=== PATIENT | female | born 2000 | race Caucasian/White ===

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

== ENCOUNTER → 2020-06-08 | Outpatient (CLI) | payer OTHER, MEDICAID, SELFPAY | END | disposition home or self-care (01) | PROVIDERS: Visit Provider Family Medicine | DX: R39.15 Urgency of urination (principal) | CPT/HCPCS: 87086; 87088 ==

== ENCOUNTER → 2020-06-14 16:25 | Outpatient (CLI) | payer OTHER, MEDICAID, SELFPAY | PROVIDERS: PCP Family Medicine; Referring Provider Family Medicine; Visit Provider Family Medicine | DX: R39.15 Urgency of urination (principal) | CPT/HCPCS: 87086; 87088 ==

== ENCOUNTER → 2020-10-18 15:21 | Outpatient (CLI) | payer BC, OTHER, MEDICAID, SELFPAY ==
--- NOTE | 2020-10-18 15:26 | MRI_ITS ---
STUDY: MRI BRAIN WITHOUT CONTRAST REASON FOR EXAM: Female, 20 years old. chronic headache -- migraines x 5 years TECHNIQUE: Standardized multiplanar fat and water weighted pulse sequences were obtained. COMPARISON: CT of the brain 04/18/2018. FINDINGS: Normal size of the ventricles and extra-axial spaces for the patient''s age. Normal white matter tracts of the supratentorial brain. Normal bilateral basal ganglia. Normal thalami. There is no extra-axial fluid accumulation. Normal flow voids within the major intracranial circulation suggesting patency by spin echo criteria. Normal sella turcica, pituitary gland, infundibular stalk, optic chiasm and hypothalamus. Normal tectal plate and pineal gland. Normal midbrain, ryan and medulla. Normal cerebellum. Normal basal cisterns. Normal bilateral temporal bones. Normal bilateral internal auditory canals. No demonstrated orbital abnormality, within the constraints of a routine brain study. Normal visualized paranasal sinuses. Normal calvarium and skull base. Normal visualized soft tissue structures. Normal visualized upper cervical spine. MRI/Brain without Contrast IMPRESSION: Normal unenhanced MRI of the brain. Electronically Signed: Lenin Walls MD at 16:12 EST , Service support ,
== END ==
PROVIDERS: PCP Family Medicine; Referring Provider Psychiatry & Neurology Sleep Medicine; Visit Provider Psychiatry & Neurology Sleep Medicine
DX: G44.89 Other headache syndrome (principal); R20.2 Paresthesia of skin
CPT/HCPCS: 70551

== ENCOUNTER → 2020-12-13 06:03 | Outpatient (CLI) | payer BC, MEDICAID, SELFPAY ==
--- NOTE | 2020-12-13 07:53 | TELEMED_ITS ---
[facility] Tele[facility] has confirmed receipt of a request for visit. This document confirms receipt of the order initiating the consult. To find the results of the consultation, please view the patient's reports for the scanned Telemed Consult.
== END ==
PROVIDERS: PCP Family Medicine; Referring Provider Psychiatry & Neurology Sleep Medicine; Visit Provider Psychiatry & Neurology Sleep Medicine
DX: G44.89 Other headache syndrome (principal); R20.2 Paresthesia of skin
CPT/HCPCS: 95819

== ENCOUNTER → 2021-02-03 09:53 | Outpatient (CLI) | payer BC, MEDICAID, SELFPAY ==
[2021-02-03 12:00] LABS: Hematocrit 43.5 % (37-47); Hemoglobin 14.6 g/dL (12.0-15.0); Mean Corp Hgb Conc 33.6 g/dL (32-36); Mean Corpuscular Hgb 29.7 pg (27.0-32.0); Mean Corpuscular Volume 88.6 fL (81-99); Mean Platelet Vol. 10.5 fl (6.2-12.0); Platelet Count 346 K/mm3 (150-450); RBC Distribution Width CV 11.6 % (11.6-14.6); RBC Distribution Width SD 37.1 fl (35.1-43.9); Red Blood Count 4.91 M/mm3 (4.2-5.4); White Blood Count 7.4 K/mm3 (4.4-11.0)
[2021-02-03 12:32] LABS: Anion Gap 6 (5-15); BUN 8 mg/dL (7-18); BUN/Creat Ratio 10.1 RATIO (10-20); Calcium,Total 9.3 mg/dL (8.5-10.1); Chloride 107 mmol/L (98-107); Cholesterol 195 mg/dL (200); Creatinine, Serum 0.79 mg/dL (0.55-1.02); EST Glomerular Filtration Rate 98 mL/min (>60); Est Glom Filt Rate - Afr Amer 118 mL/min (>60); Estradiol 75.2 pg/mL; Follicle Stimulating Hormone 5.8 mIU/mL; Glucose 81 mg/dL (74-106); High Density Lipoprotein 53 mg/dL; Luteinizing Hormone 13.2 mIU/mL; Potassium 3.5 mmol/L (3.5-5.1); Sodium Level 139 mmol/L (136-145); Triglycerides 86 mg/dL; Very Low Density Lipoprotein 17 mg/dL (5-40)
[2021-02-07 11:04] LABS: Prolactin 12.5 ng/mL
== END ==
PROVIDERS: PCP Family Medicine; Referring Provider Family Medicine; Visit Provider Family Medicine
DX: N92.6 Irregular menstruation, unspecified (principal); Z13.220 Encounter for screening for lipoid disorders
CPT/HCPCS: 36415; 80048; 80061; 82627; 82670; 83001; 83002; 84146; 84403; 84443; 85027; 82626

== ENCOUNTER → 2023-08-02 | Outpatient (CLI) | payer BC, SELFPAY ==
[2023-08-02 15:32] LABS: Vitamin D,25 Hydroxy 117.9 ng/mL
[2023-08-02 15:44] LABS: Thyroid Stim Hormone (TSH) 1.38 uIU/mL (0.358-3.74)
== END | disposition home or self-care (01) ==
LOC: MFPLAB 14:09
PROVIDERS: PCP Family Medicine; Visit Provider Family Medicine
DX: F41.9 Anxiety disorder, unspecified (principal)
CPT/HCPCS: 36415; 82306; 84443

== ENCOUNTER 2023-12-17 02:37 | Emergency (ER) | payer BC, SELFPAY ==
[2023-12-17 02:42] VITALS: BP 103/86; PULSE 104; RESP 16; TEMP 36.1; O2SAT 100; BMI 24.4
--- NOTE | 2023-12-17 03:05 | ED.VIS.GI ---
HPI HPI - GI History of Present Illness Chief Complaint: Nausea/Vomiting/Diarrhea Informant: patient Abdominal Pain/Flank Pain Onset: Today and Hours (3) Context: Sudden Onset Timing: Continuous Quality: Dull Location: Diffuse Worsened by: Nothing Relieved by: Nothing Nausea/Vomiting/Emesis GI Symptom: Positive for Nausea and Vomiting Quality: Positive for Nonbilious; Negative for Blood streaks, Coffee ground or Hematemesis Diarrhea/Melena/Hematochezia GI Symptom: Positive for Diarrhea; Negative for Melena or Hematochezia Associated Symptoms Associated Symptoms: Negative for Dysuria, Frequency or Hematuria Narrative Narrative: Patient presents with nausea, vomiting, and diarrhea that began approximately 3 hours prior to arrival. Patient states it began rather suddenly. Patient also admits to some diffuse abdominal pain. Patient describes it as dull. Patient states nothing makes her symptoms any better and nothing makes them any worse. Patient states her diarrhea is watery. Patient denies any melena or hematochezia. Patient states that she is just vomiting stomach contents. Patient denies any hematemesis or coffee-ground emesis. Patient denies any bilious vomiting. Patient admits to some subjective fevers where she has a warm sensation just prior to vomiting. Patient also breaks out into a sweat when she vomits. [facility] Medical History MIA (generalized anxiety disorder) Home Medications rizatriptan 10 mg tablet 10 mg PO PRN PRN Migraine Symptoms 04/18/18 [History Last Taken Unknown] cholecalciferol (vitamin D3) 125 mcg (5,000 unit) tablet (Vitamin D3) 125 mcg PO DAILY 07/31/22 [History Last Taken Unknown] doxepin 10 mg capsule 10 mg PO DAILY 07/31/22 [History Last Taken Unknown] duloxetine 60 mg capsule,delayed release 60 mg PO DAILY #90 caps 10/29/23 [Rx Last Taken Unknown] hydroxyzine HCl 25 mg tablet 25 mg PO TID PRN anxiety #90 tabs 10/29/23 [Rx Last Taken Unknown] topiramate 25 mg tablet mg PO 10/29/23 [History Last Taken Unknown] ondansetron 4 mg disintegrating tablet 4 mg PO Q8H PRN PRN Nausea #10 tabs 12/17/23 [Rx Last Taken Unknown] Allergy/AdvReac Type Severity Reaction Status Date / Time amoxicillin Allergy Intermediate Nausea Verified 10/29/23 15:38 Family History Other Anemia Thyroid disorder Surgical History History of hernia repair [place] teeth extracted Social History Smoking Status: Never smoker alcohol intake: never substance use type: does not use ROS ROS ED Constitutional Constitutional ED: Reports fever(s), subjective and sweats; Denies chills Eyes Eyes: Denies blurry vision or change in vision ENT ENT ED: Denies rhinorrhea or sore throat Cardiovascular Cardiovascular: Denies chest pain or palpitations Respiratory/Chest Respiratory/Chest: Denies cough or dyspnea Gastrointestinal Gastrointestinal: Reports diarrhea, nausea and vomiting Genitourinary Genitourinary ED: Denies dysuria or hematuria Musculoskeletal Musculoskeletal: Reports neck pain; Denies back pain Integumentary Denies abscess or rash Neurologic Neurologic: Denies headache(s) or weakness Psychiatric Psychiatric: Reports anxiety Allergic/Immunologic Allergic/Immunologic ED: Denies mouth swelling or urticaria EXAM Physical Exam Const Vital Signs: 12/17/23 02:42 Temperature 96.9 F L Temperature Source Temporal Pulse Rate 104 H Respiratory Rate 16 Blood Pressure 103/86 H Blood Pressure Mean 91 Pulse Ox 100 Oxygen Delivery Method Room Air Positive well nourished and well developed General Appearance ED: well developed and NAD HEENT Reports moist mucous membranes Neck supple and no JVD Resp normal respiratory effort and clear to auscultation bilaterally Cardio regular rate and regular rhythm GI non-tender and non-distended Palpation: soft Neuro CN's II-XII intact bilaterally, moves all extremities and no sensory deficits noted Sensorium / Orientation: alert Motor Exam: strength 5/5 throughout Psych mental status grossly normal MDM MDM MDM Narrative Medical decision making narrative: Differential diagnosis includes gastroenteritis, viral illness, dehydration, electrolyte abnormality, urinary tract infection, and pancreatitis. CBC will be obtained to assess for leukocytosis and anemia. Comprehensive metabolic profile will be obtained to assess for electrolyte abnormality, renal function, and hepatic function. Lipase will be obtained to assess for pancreatitis. Urinalysis will be obtained to assess for urinary tract infection. Lab Data Attestation: I reviewed the patient's lab results. Lab results narrative: CBC was reviewed. There is a mild leukocytosis of 14.8. Hemoglobin was slightly elevated at 16.6 and hematocrit was 48.7. Platelets were normal. Comprehensive metabolic profile was reviewed. Glucose was elevated at 220. Creatinine was 1.16. Potassium slightly low at 3.3. Anion gap was normal. Lipase was reviewed and was slightly elevated at 107. Urinalysis was reviewed. Leukocyte Estrace was 25. There were 25-50 white blood cells and 4+ bacteria. However there were also noted 50-100 squamous epithelial cells. Labs: Laboratory Results - last 24 hr 12/17/23 12/17/23 03:34 03:42 WBC 14.8 H RBC 5.46 H Hgb 16.6 H Hct 48.7 H MCV 89.2 MCH 30.4 MCHC 34.1 RDW Std Deviation 38.7 RDW Coeff of [place] 12.1 Plt Count 371 MPV 10.6 Immature Gran % (Auto) 0.400 Neut % (Auto) 87.2 H Lymph % (Auto) 3.3 L Castro % (Auto) 8.5 Eos % (Auto) 0.1 Baso % (Auto) 0.5 Absolute Neuts (auto) 12.9 H Absolute Lymphs (auto) 0.49 L Nucleated RBC % 0 Sodium 142 Potassium 3.3 L Chloride 109 H Carbon Dioxide 23.0 Anion Gap 10 BUN 10 Creatinine 1.16 H Estim Creat Clear Calc 62.06 Est GFR (MDRD) Af Amer 74 Est GFR (MDRD) Non-Af 61 BUN/Creatinine Ratio 8.6 L Glucose 220 H Calcium 9.5 Total Bilirubin 1.10 H AST 11 L ALT 17 Alkaline Phosphatase 90 Total Protein 7.7 Albumin 4.5 Globulin 3.2 Albumin/Globulin Ratio 1.4 Lipase 107 H Urine Color Yellow Urine Clarity Clear Urine pH 5.0 Ur Specific Severance 1.030 Urine Protein 30 H Urine Glucose (UA) Normal Urine Ketones 15 H Urine Occult Blood 25 H Urine Nitrite Negative Urine Bilirubin 3 H Urine Urobilinogen 1 H Ur Leukocyte Esterase 25 H Urine RBC 10-25 SEEN Urine WBC 25-50 SEEN Ur Squamous Epith Cells 50-100 SEEN Urine Bacteria 4+ Urine Mucus 0 SEEN Additional Tests and Interventions Additional Tests or Interventions: Urine culture was ordered. Treatment and Re-Evaluation :: Patient was given IV fluids and Zofran. Patient is feeling better on reevaluation. Patient was instructed to start with small amounts of liquids more frequently. Patient was instructed to advance her diet to a bland diet and then to a regular diet if she feels better. Patient was given a prescription for Zofran. Patient was instructed to follow-up with her primary care physician in 5 to 7 days. Patient instructed to continue to monitor her blood sugars. Patient understood and was agreeable with the plan. All questions were answered. Discharge Plan Triage Chief Complaint: Nausea/Vomiting/Diarrhea ED Provider: Abdirizak Sawyer Dx/Rx/DC Orders Clinical Impression: Hyperglycemia, Nausea and vomiting Instructions: ED Vomiting (Adult) Prescriptions: New ondansetron [ondansetron] 4 mg tablet,disintegrating 4 mg PO Q8H PRN PRN (Reason: Nausea) Qty: 10 0RF No Action cholecalciferol (vitamin D3) [Vitamin D3] 125 mcg (5,000 unit) tablet 125 mcg PO DAILY Patient Comments: TAKE 1 TABLET BY MOUTH EVERY DAY doxepin 10 mg capsule 10 mg PO DAILY topiramate 25 mg tablet PO Patient Comments: TAKE 1 TABLET BY MOUTH ONCE DAILY AT BEDTIME. INCREASE TO TWICE DAILY AFTER 1 WEEK duloxetine 60 mg capsule,delayed release(DR/EC) 60 mg PO DAILY Qty: 90 1RF hydroxyzine HCl 25 mg tablet 25 mg PO TID PRN (Reason: anxiety) Qty: 90 2RF rizatriptan 10 MG tablet 10 mg PO PRN PRN (Reason: Migraine Symptoms) Primary Care Provider: Femi Espinal Referrals: Femi Espinal MD [Primary Care Provider] - 3-5 Days Disposition Disposition: Home, Self Care
[2023-12-17] MEDS: Ondansetron 4 MG/2 ML Vial IV (03:41)
[2023-12-17 03:42] LABS: Mucous, Urine 0 SEEN /hpf (<or=2+)
[2023-12-17] MEDS: 0.9% Normal Saline (1000mL) 1,000 ML 1000 ML IV (03:42)
[2023-12-17 03:43] LABS: Color, Urine Yellow (Yellow); Glucose, Dipstick Normal (Normal); Ketone-Dipstick 15 mg/dl (Negative); Leukocyte Esterase-Dipstick 25 /ul (Negative); Nitrite-Dipstick Negative (Negative); Occult Blood-Urine 25 /ul (Negative); Protein-Dipstick 30 mg/dl (Negative); Urine Clarity Clear (Clear); Urine Urobilinogen 1 mg/dl (Normal)
[2023-12-17 03:48] LABS: Urine Bilirubin Dipstick 3 mg/dL (Negative)
[2023-12-17 03:51] LABS: Absolute Lymphocyte Count 0.49 X10^3/uL (0.83-4.51); Absolute Neutrophil Count 12.9 X10^3/uL (2.0-7.7); Basophil# 0.08 X10^3/uL; Basophil% 0.5 % (0-1); Eosinophil# 0.01 X10^3/uL; Eosinophils% 0.1 % (0-5); Hematocrit 48.7 % (37-47); Hemoglobin 16.6 g/dL (12.0-15.0); Lymphocyte # 0.49 X10^3/ul (0.83-4.51); Lymphocyte % 3.3 % (19-41); Mean Corp Hgb Conc 34.1 g/dL (32-36); Mean Corpuscular Hgb 30.4 pg (27.0-32.0); Mean Corpuscular Volume 89.2 fL (81-99); Mean Platelet Vol. 10.6 fl (6.2-12.0); Monocyte# 1.25 X10^3/uL; Monocyte% 8.5 % (0-10); NRBC Flagged by Analyzer 0 % (0-5); Neutrophil # 12.89 X10^3/uL (2.7-7.7); Neutrophil % 87.2 % (47-70); POSITIVE DIFFERENTIAL YES; Platelet Count 371 K/mm3 (150-450); RBC Distribution Width CV 12.1 % (11.6-14.6); RBC Distribution Width SD 38.7 fl (35.1-43.9); Red Blood Count 5.46 M/mm3 (4.2-5.4); White Blood Count 14.8 K/mm3 (4.4-11.0)
[2023-12-17 03:52] LABS: Bacteria 4+ /hpf (None Seen); Red Blood Cells-Urine 10-25 SEEN /hpf (0-5); Squamous Epithelial Cells - UA 50-100 SEEN /hpf (5-10); White Blood Cells 25-50 SEEN /hpf (0-5)
[2023-12-17 04:08] LABS: ALB/GLOB Ratio 1.4 RATIO (0.9-2.4); AST(SGOT) 11 U/L (15-37); Alanine Aminotransfer ALT/SGPT 17 U/L (13-56); Albumin, Serum 4.5 g/dL (3.2-5.0); Alkaline Phosphatase 90 U/L (45-117); Anion Gap 10 (5-15); BUN 10 mg/dL (7-18); BUN/Creat Ratio 8.6 RATIO (10-20); Calcium,Total 9.5 mg/dL (8.5-10.1); Chloride 109 mmol/L (98-107); Creatinine, Serum 1.16 mg/dL (0.55-1.02); EST Glomerular Filtration Rate 61 mL/min (>60); Est Glom Filt Rate - Afr Amer 74 mL/min (>60); Estimated Creatinine Clearance 62.06 ml/min; Globulin 3.2 g/dL (2.2-4.2); Glucose 220 mg/dL (74-106); Lipase 107 U/L (13-75); Potassium 3.3 mmol/L (3.5-5.1); Protein, Total 7.7 g/dL (6.4-8.2); Sodium Level 142 mmol/L (136-145)
[2023-12-17 04:52] VITALS: BP 98/57; PULSE 99; RESP 16; TEMP 36.2; O2SAT 99
== END 2023-12-17 04:52 | disposition home or self-care (01) ==
PROVIDERS: Emergency Provider Emergency Medicine; PCP Family Medicine; Visit Provider Emergency Medicine
DX: R11.2 Nausea with vomiting, unspecified (principal); R73.9 Hyperglycemia, unspecified; F41.1 Generalized anxiety disorder; Z79.899 Other long term (current) drug therapy
CPT/HCPCS: 80053; 81001; 83690; 85025; 87086; 87088; 96361; 96374; 99284; J7030; A4216; J2405

== ENCOUNTER → 2024-01-02 | Outpatient (CLI) | payer BC, SELFPAY ==
--- NOTE | 2024-01-02 07:16 | US_ITS ---
INDICATION: ABDOMINAL PAIN EXAMINATION: Ultrasound US Abdomen Limited (quadrant) TECHNIQUE: Costa scale and color doppler imaging was performed of the right upper quadrant. COMPARISON: FINDINGS: LIVER: There is normal echotexture measuring 11.7 cm. There is a hyperechoic 1.7 x 2.9 x 1.9 cm likely a hemangioma. There is no free fluid. GALLBLADDER AND BILIARY TREE: No shadowing gallstone, pericholecystic fluid or gallbladder wall thickening is demonstrated. There is layering gallbladder sludge. The proximal common bile duct measures 2.8 mm, which is within normal limits for the patient''s age. Songraphic Wagner''s sign: Negative. PANCREAS: No focal abnormality is demonstrated in the pancreas. No pancreatic ductal dilatation. RIGHT KIDNEY: 10.1 x 4.2 x 3.5 cm. The cortex is 13 mm. No hydronephrosis. No shadowing calculi. US/Abdomen Limited IMPRESSION: Possible hepatic hemangioma. Layering gallbladder sludge. Electronically Signed: Anthony Beck DO at 16:14 EDT ,
== END | disposition home or self-care (01) ==
PROVIDERS: PCP Family Medicine; Referring Provider Family Medicine; Visit Provider Family Medicine
DX: R10.9 Unspecified abdominal pain (principal)
CPT/HCPCS: 76705